=== PATIENT | male | born 1990 | race Hispanic/Latino ===

== ENCOUNTER 2016-12-31 21:16 | Emergency (ER) | payer BC ==
[2016-12-31 21:31] VITALS: BP 135/89; PULSE 98; RESP 16; TEMP 98.9; O2SAT 98
--- NOTE | 2016-12-31 21:46 | ED PDOC ---
HPI: General Adult Time Seen by Provider: 12/31/16 21:38 Chief Complaint (Nursing): ENT Problem History Per: Patient Additional Complaint(s): Pt. states 30 mins [employer] he was playing basketball when he was struck in the nose by another player's head. Pt. states he did not lose consciousness but did start bleeding from the L nostril immediately. Pt. states that he does not have headache. Denies previous TBI, N/V, LOC, anticoagulant use, neck pain. Past Medical History Reviewed: Historical Data, Nursing Documentation, Vital Signs Vital Signs: Last Vital Signs Temp 98.9 F 12/31/16 21:29 Pulse 98 H 12/31/16 21:29 Resp 16 12/31/16 21:29 BP 135/89 12/31/16 21:29 Pulse Ox 98 12/31/16 22:41 - Family History Family History: States: No Known Family Hx - Allergies Allergies/Adverse Reactions: Allergies Allergy/AdvReac Type Severity Reaction Status Date / Time No Known Allergies Allergy Verified 12/31/16 21:29 Review of Systems ROS Statement: Except As Marked, All Systems Reviewed And Found Negative ENT: Positive for: Nose Pain Physical Exam - Physical Exam Appears: Positive for: Well, Non-toxic, No Acute Distress Head Exam: Positive for: ATRAUMATIC, NORMAL INSPECTION, NORMOCEPHALIC Skin: Positive for: Normal Color, Warm. Negative for: Rash ENT: Positive for: TM Is/Are (WNL b/l), Hearing Is (grossly intact), Other (L sided nasal bridge tenderness without deformity; no septal hematoma b/l or active bleeding noted). Negative for: Sinus Pain/Drainage, Pharyngeal Erythema , Tonsillar Exudate, Tonsillar Swelling Neck: Positive for: Normal, Painless ROM Back: Negative for: L CVA Tenderness, R CVA Tenderness, Vertebral Tenderness ( including cervical area) Extremity: Positive for: Normal ROM Neurologic/Psych: Positive for: Alert, Oriented, Gait (steady and unassisted). Negative for: Aphasia, Facial Droop - ECG O2 Sat by Pulse Oximetry: 98 - Radiology X-Ray: Interpreted by Me (Nasal bones) X-Ray Interpretation: Other (non-displaced fx at tip of nasal bone) - Progress ED Course And Treament: Nasal bones x-ray ordered. Pt. offered pain meds but refused. Ice pack applied to nose. Disposition - Clinical Impression Clinical Impression: Nasal fracture - Patient ED Disposition Is Patient to be Admitted: No - Disposition Referrals: Az Don MD [Staff Provider] - [facility] [Outside] Disposition: Routine/Home Disposition Time: 22:41 Condition: STABLE Instructions: Nasal Fracture (ED) Forms: [facility] Vis[facility] Discharge ([place])
--- NOTE | 2017-01-01 10:47 | RAD ---
PROCEDURE: y HISTORY: trauma COMPARISON: None available. TECHNIQUE: Frontal and lateral radiographs of the nasal bones. FINDINGS: No fracture of nasal bones visualized. No destructive lesion. IMPRESSION: No nasal bone fracture visualized.
== END 2016-12-31 23:02 | disposition home or self-care (01) ==
LOC: H.ER 21:16
DX: S02.2XXA Fracture of nasal bones, initial encounter for closed fracture (principal); W22.8XXA Striking against or struck by other objects, initial encounter; Y92.310 Basketball court as the place of occurrence of the external cause